=== PATIENT | male | born 1950 | race African-American/Black ===

== ENCOUNTER → 2017-10-14 | Outpatient (CLI) | payer BC ==
[~2017-10-14] MED LIST: IOHEXOL 240 MG/ML 50ML VIAL. ONE; IOHEXOL 300 MG/ML 75 ML VIAL. IV ONE
--- NOTE | 2017-10-14 10:23 | RAD ---
CT of the chest, abdomen and pelvis with contrast, 10/14/2017: History: Rectal malignancy Multidetector CT imaging was performed following oral and IV administration of contrast. Comparison is made to a study from 09/17/2016. There is mild calcific plaquing of the thoracic aorta and its branches without evidence of aneurysm. No mediastinal or hilar adenopathy is seen. There are a few scattered pulmonary lucencies compatible with minimal emphysema. There is mild linear scarring or atelectasis in the lung bases. No pulmonary mass or significant consolidation is seen. There is no evidence of pleural fluid. Several well-defined low density hepatic lesions are unchanged and are compatible with cysts. No new hepatic abnormality is seen. The gallbladder is unremarkable. No pancreatic abnormality is detected. The spleen is of normal size. There is a small right renal cortical cyst evident laterally. A smaller tiny left renal cortical nodule is too small to definitively characterize but is also probably a cyst. There is a 9 mm nonobstructing intrarenal calculus on the right. Unchanged small bilateral low-density adrenal nodules are probably adenomas. Moderate aortoiliac calcific plaquing is present. No abdominal or pelvic adenopathy is seen. The prostate gland is mildly enlarged. Moderate diffuse bladder wall thickening is accentuated by lack of bladder distention. There has been a previous partial colectomy. A tiny rectal stump is present. A colostomy is present in the left lower quadrant. 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 There is no evidence of obstruction. No free fluid is evident in the abdomen or pelvis. IMPRESSION: 1. No CT evidence of metastatic disease in the chest, abdomen or pelvis. 2. 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 3. Incidental chronic findings as described above. PQRS Compliance Statement: One or more of the following individualized dose reduction techniques were utilized for this examination: 1. Automated exposure control 2. Adjustment of the mA and/or kV according to patient size 3. Use of iterative reconstruction technique
== END | disposition home or self-care (01) ==
LOC: CT 08:34
PROVIDERS: ATTEND Internal Medicine Hematology & Oncology
DX: C20 Malignant neoplasm of rectum (principal); K43.5 Parastomal hernia without obstruction or gangrene; K76.89 Other specified diseases of liver; R91.8 Other nonspecific abnormal finding of lung field; Z93.3 Colostomy status; Z90.49 Acquired absence of other specified parts of digestive tract
CPT/HCPCS: 71260; 74177; Q9966; Q9967